=== PATIENT | female | born 1995 | race Two or more races ===

== ENCOUNTER 2024-11-08 15:41 | Emergency (ER) | payer OTHER ==
[~2024-11-08] VITALS: Ht 154.9 cm; Wt 71.2 kg
== END 2024-11-08 20:54 | disposition home or self-care (01) ==
LOC: ER 15:43
DX: O20.8 Other hemorrhage in early pregnancy (principal); Z3A.19 19 weeks gestation of pregnancy

== ENCOUNTER 2024-12-03 14:51 | Outpatient (CLI) | payer OTHER | END 2024-12-03 14:54 | disposition home or self-care (01) | LOC: PRENATAL 14:51 | PROVIDERS: ATTEND Obstetrics & Gynecology Maternal & Fetal Medicine | DX: O44.00 Complete placenta previa NOS or without hemorrhage, unspecified trimester (principal); Z3A.22 22 weeks gestation of pregnancy ==

== ENCOUNTER → 2025-02-09 11:41 | Outpatient (CLI) | payer OTHER | END | disposition home or self-care (01) | LOC: PRENATAL 11:41 | PROVIDERS: ATTEND Obstetrics & Gynecology Maternal & Fetal Medicine | DX: O26.849 Uterine size-date discrepancy, unspecified trimester (principal); O36.8199 Decreased fetal movements, unspecified trimester, other fetus; Z3A.33 33 weeks gestation of pregnancy ==

== ENCOUNTER 2025-04-03 00:20 | Inpatient (IN) | payer OTHER ==
[~2025-04-03] VITALS: Ht 154.9 cm; Wt 88.5 kg
[2025-04-03] VITALS (7 sets, daily range): BP systolic 123–137; BP diastolic 67–86; O2SAT 99
[2025-04-03] MEDS ORDERED: RINGERS SOLUTION,LACTATED 1,000 ML IV SCH (00:30)
[2025-04-03 02:03] LABS: URINE APPEARANCE Clear; URINE BILIRRUBIN Negative (NEGATIVE); URINE BLOOD Negative; URINE COLOR Dark Yellow; URINE GLUCOSE Negative (NEGATIVE); URINE LEUKOCYTE Small; URINE NITRATE Negative; URINE UROBILINOGEN 1.0 E.U./dl
[2025-04-03 02:05] LABS: URINE BACTERIA 2258.3 uL (0.0-1933); URINE EPITHELIAL CELLS 44.7 uL (0.0-38.8); URINE RBC 8.7 uL (0.0-20.8); URINE WBC 178.2 uL (0.0-23.2)
[2025-04-03 02:26] LABS: BASO % 0.2 % (0.1-1.2); EOS # 0.01 (0.04-0.54); EOS % 0.1 % (0.7-7.0); LYMPH # 2.01 (1.18-3.74); LYMPH % 19.6 % (19.3-53.1); MEAN PLATELET VOLUME 11.40 fl (9.4-12.4); MONO # 0.57 (0.24-0.82); MONO % 5.6 % (4.7-12.5); NEUT # 7.60 (1.56-6.13); NEUT % 73.9 % (34.0-71.1); RED CELL DISTRIBUTION WIDTH 14.0 % (11.6-14.4)
[2025-04-03 02:51] LABS: INR < 0.93
[2025-04-03 03:05] LABS: ALT/SGPT 14.0 U/L (12-78); AST/SGOT 18.0 U/L (15-37); BILIRUBIN TOTAL 0.3 mg/dL (0.3-1.2); BUN CREA RATIO 23.0 (7.0-25.0); GFR 176.14; GLOBULINA 4.0 G/DL (2.4-3.5); GLUCOSE FASTING 78.0 mg/dL (65-100); OSMOLALITY SERUM 275.0 MOSM/KG (275-295)
[2025-04-03 03:10] LABS: CREATININE SERUM 0.43 mg/dL (0.55-1.02)
[2025-04-03 03:19] LABS: TYPE CELLS SQUAMOUS; URINE CAST 1.17 uL (0.0-1.40); URINE KETONE 40 (NEGATIVE); URINE PROTEIN 100 (NEGATIVE)
[2025-04-03] MEDS ORDERED: PRENATAL TABLE1 EAC1 PO (07:26)
[2025-04-03] MEDS ORDERED: TYLENOL325 MG (09:03)
[2025-04-04 03:05] VITALS: BP 117/77; O2SAT 99
[2025-04-04 05:56] LABS: URINE PROT QUANT 24HR 69.3 MG/DL
[2025-04-04 06:26] LABS: URINE PROT QUANT 24 HR 381.15 MG/24HR (42-225)
[2025-04-04 07:37] VITALS: BP 119/82; O2SAT 98
[2025-04-04] MEDS ORDERED: MAGNESIUM SULFATE IN WATER 500 ML IV SCH (08:15)
[2025-04-04] MEDS ORDERED: OXYTOCIN 10 UNITS/ML VIAL ONE (10:30)
[2025-04-04] MEDS ORDERED: ERYTHROMYCIN BASE OPHT 1GM EACH TUBE OP ONE (10:30)
[2025-04-04] MEDS ORDERED: MORPHINE SULFATE 4 MG/ML CARTRIDGE IV PRN ×2 (12:45→20:10)
[2025-04-04] MEDS ORDERED: MORPHINE SULFATE 4 MG/ML VIAL IV ONE (15:05)
[2025-04-04 16:00] VITALS: BP 104/68; O2SAT 99
[2025-04-04 19:53] VITALS: BP 120/78; O2SAT 98
[2025-04-04 21:52] LABS: BASO % 0.1 % (0.1-1.2); EOS # 0.00 (0.04-0.54); EOS % 0.0 % (0.7-7.0); LYMPH # 1.14 (1.18-3.74); LYMPH % 7.4 % (19.3-53.1); MEAN PLATELET VOLUME 11.60 fl (9.4-12.4); MONO # 0.57 (0.24-0.82); MONO % 3.7 % (4.7-12.5); NEUT # 13.53 (1.56-6.13); NEUT % 88.2 % (34.0-71.1); RED CELL DISTRIBUTION WIDTH 13.8 % (11.6-14.4)
[2025-04-04 23:25] VITALS: BP 108/68
[2025-04-05] VITALS (8 sets, daily range): BP systolic 102–126; BP diastolic 69–84
[2025-04-05] MEDS ORDERED: ACETAMINOPHEN 325 MG TABLET PO PRN (14:45)
[2025-04-05] MEDS ORDERED: OxyCODONE HCL 5 MG TABLET (ROXICODONE) PO PRN (14:45)
[2025-04-05] MEDS ORDERED: MORPHINE SULFATE 4 MG/ML VIAL IV ONE (18:00)
[2025-04-06 04:16] VITALS: BP 118/74
[2025-04-06 08:24] VITALS: BP 120/81; O2SAT 99
[2025-04-06 16:17] VITALS: BP 123/80
[2025-04-07] VITALS: BP 125/84
[2025-04-07 09:03] VITALS: BP 130/82; O2SAT 98
== END 2025-04-07 13:34 | disposition home or self-care (01) | DRG 788 ==
LOC: LDR 00:20 → OB/GYN 04-05 17:57
PROVIDERS: ADMIT Obstetrics & Gynecology Obstetrics; ATTEND Obstetrics & Gynecology Obstetrics
PROC: BY4FZZZ Ultrasonography of Third Trimester, Single Fetus (ICD-10-PCS; 2025-04-03)
PROC: 4A1HXCZ Monitoring of Products of Conception, Cardiac Rate, External Approach (ICD-10-PCS; 2025-04-03)
PROC: 10D00Z1 Extraction of Products of Conception, Low, Open Approach (ICD-10-PCS; principal; 2025-04-04 10:00)
DX: O14.04 Mild to moderate pre-eclampsia, complicating childbirth (principal); O26.843 Uterine size-date discrepancy, third trimester; O36.8130 Decreased fetal movements, third trimester, not applicable or unspecified; Z3A.40 40 weeks gestation of pregnancy; Z37.0 Single live birth